=== PATIENT | male | born 2005 | race Caucasian/White ===

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

== ENCOUNTER 2025-04-25 00:50 | Day surgery (SDC) | payer OTHER, SELFPAY ==
[2025-04-13 12:06] VITALS: BMI 25.2
[2025-04-25 08:29] VITALS: BMI 26.8
[2025-04-25 08:31] VITALS: BP 114/71; PULSE 97; RESP 18; TEMP 37; O2SAT 100; BMI 26.8
[2025-04-25] MEDS: LACTATED RINGERS 1,000 ML 150 ML IV CONT (08:38)
--- NOTE | 2025-04-25 08:48 | P.PNAN_ITS ---
Anes - Initial Pre Proc Eval Procedure: Operation Date: 04/25/25 09:30 Proposed Procedures p Esophagogastroduodenoscopy - Jacbo Steiner MD Date/Time: 04/25/25 08:48 Surgeon: Jacob Steiner MD Pre Op Diagnosis: Gastro-esophageal reflux disease without esophagit Patient Data Age: 19 Gender: M Height: 1.68 m Weight: 75.3 kg Last Vital Signs Temp 37.0 C 04/25/25 08:31 Pulse 97 04/25/25 08:31 Resp 18 04/25/25 08:31 BP 114/71 04/25/25 08:31 Pulse Ox 100 04/25/25 08:31 O2 Del Method Room Air 04/25/25 08:31 Allergies Allergy/AdvReac Type Severity Reaction Status Date / Time amoxicillin Allergy Severe Rash Verified 04/25/25 08:28 azithromycin (From Zithromax) Allergy Mild Rash Verified 04/25/25 08:28 Home Medications ?Medication ?Instructions ?Recorded ?Confirmed ?Type bupropion HCl 150 mg 24 hr tablet, 150 mg PO QAM #90 t abs 08/23/24 04/25/25 Rx extended release (Wellbutrin XL) hydroxyzine HCl 25 mg tablet 25 mg PO BID PRN nausea a nd 08/23/24 04/25/25 Rx vomiting #90 tabs escitalopram oxalate 20 mg tablet 20 mg PO DAILY #90 t abs 10/02/24 04/25/25 Rx omeprazole 40 mg capsule,delayed 40 mg PO DAILY 3 matteo hs #90 caps 04/04/25 04/25/25 Rx release Patient hx anesthesia problems: none Family hx anesthesia problems: none Results Review: All pre-operative results and documents have been reviewed as part of the pre- operative evaluation. 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 Surgical History Surgical History S/P appendectomy No history of previous surgery Family History Family History Father Hyperlipidemia Skin cancer Mother Depression Skin cancer Bipolar disorder Grandparent Skin cancer Social History Social History Smoking status: Never smoker Second hand tobacco smoke exposure: No Alcohol intake: never Substance use: never Substance use type: does not use Lack of Transportation: No Lack of Food: Never True Current Housing: I Have Housing Concerned About Future Housing: No Difficulty Paying Gas/Electric Bills: No Difficulty Paying for Meds: No Currently Unemployed: No Difficulty w/ Childcare or Family Care: No Living arrangements: with family Occupation/Education: student Gender identity (if verbalized by the patient): Male Spiritual care concerns: No Anes - Eval Final PreProcedure Day of Procedure 04/25/25 08:48 Patient weight: overweight Heart: regular rate and rhythm Lungs: clear to auscultation Airway: Mallampati scale class II Neurological: alert and oriented Last oral intake: >/= 8 hours ASA classification: II Emergent: no Anesthetic plan: proceed Anesthesia type and monitoring: general GIVS and standard monitoring Results Review: All pre-operative results and documents have been reviewed as part of the pre- operative evaluation. Informed Consent: The patient's anesthetic plan and its attendant risks and benefits were discussed with the patient/family/POA. Questions were solicited and answers provided to the satisfaction of the patient/family/POA.
--- NOTE | 2025-04-25 10:04 | WPDHPUPDATE1 ---
History and Physical Update Update Date/Time: 04/25/25 10:04 History and Physical has been reviewed, including an updated exam of the patient. There are NO changes in the patient's condition. Risks, benefits, and alternatives have been discussed and questions answered. Patient agrees to proceed with procedure.
[2025-04-25 10:21] VITALS: BP 100/51; PULSE 75; RESP 18; O2SAT 96
--- NOTE | 2025-04-25 10:21 | S_PTH ---
PATIENT: Radha Velazquez LOC: [facility]#:[id number] AGE/SX: 19/M ROOM: RE04/25/[address]: Jacob Steiner MD : 2005 BED: DIS: 04/25/2025 SPEC #: [id number] RECD: 04/25/25 11:19 STATUS: LUKE REStephane #: [id number] KACIE: 04/25/25 10:[address]: Jacob Steiner DEPT: [facility] Surgical RECD BY: Mariel Harris ENTERED: 04/25/25 11:19 SP TYPE: Surgical OTHR DR: Lorenza Bush PA-C Tissues: A - Esophageal Biopsy B - Gastric Biopsy Procedures: Hematoxylin and Eosin Stain Gross and Microscopic Level 4
[2025-04-25 10:31] VITALS: BP 96/50; PULSE 76; RESP 18; O2SAT 97
[2025-04-25 10:38] VITALS: BP 105/50; PULSE 67; RESP 18; O2SAT 97
== END 2025-04-25 10:51 | disposition home or self-care (01) ==
PROVIDERS: PCP Student in an Organized Health Care Education/Training Program; Referring Provider Nurse Practitioner Family; Visit Provider Internal Medicine Gastroenterology
PROC: 0DJ08ZZ Inspection of Upper Intestinal Tract, Via Natural or Artificial Opening Endoscopic (ICD-10-PCS; CPT 43239; principal; 2025-04-25 09:30)
DX: K21.9 Gastro-esophageal reflux disease without esophagitis (principal); K31.89 Other diseases of stomach and duodenum; J31.0 Chronic rhinitis; Z98.890 Other specified postprocedural states; Z84.0 Family history of diseases of the skin and subcutaneous tissue
CPT/HCPCS: 43239; 88305; J2003; J2704; J7120